=== PATIENT | female | born 2000 | race Caucasian/White ===

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

== ENCOUNTER 2019-06-03 08:34 | Emergency (ER) | payer OTHER ==
[~2019-06-03] VITALS: Ht 167.6 cm; Wt 99.8 kg
[~2019-06-03 08:34] MED LIST changes: +Silvadene20 GM TOP
[2019-06-03] MEDS ORDERED: MONDOXYNE NL100 MG PO (09:12)
[2019-06-03] MEDS ORDERED: MUCINEX D ER 61 EACH PO ×3 (09:12→10:15)
== END 2019-06-03 09:18 | disposition home or self-care (01) ==
LOC: ER 08:34
DX: J32.9 Chronic sinusitis, unspecified (principal); F17.200 Nicotine dependence, unspecified, uncomplicated; Z88.0 Allergy status to penicillin
CPT/HCPCS: 99283

== ENCOUNTER 2019-06-13 10:02 | Emergency (ER) | payer OTHER ==
[~2019-06-13] VITALS: Ht 167.6 cm; Wt 99.8 kg
[~2019-06-13 10:02] MED LIST changes: +MONDOXYNE NL100 MG PO; +MUCINEX D ER 61 EACH PO
[2019-06-13] MEDS ORDERED: CYCL10 PO (11:21)
[2019-06-13] MEDS ORDERED: IBUP800 PO (11:21)
== END 2019-06-13 11:51 | disposition home or self-care (01) ==
LOC: ER 10:02
DX: S39.012A Strain of muscle, fascia and tendon of lower back, initial encounter (principal); W19.XXXA Unspecified fall, initial encounter; Z88.0 Allergy status to penicillin; Z79.899 Other long term (current) drug therapy; F17.200 Nicotine dependence, unspecified, uncomplicated
CPT/HCPCS: 72100; 99283-25

== ENCOUNTER 2021-01-25 07:24 | Emergency (ER) | payer OTHER ==
[~2021-01-25] VITALS: Ht 167.6 cm; Wt 95.2 kg
[~2021-01-25 07:24] MED LIST changes: +CYCL10 PO; +IBUP800 PO
== END 2021-01-25 08:39 | disposition home or self-care (01) ==
LOC: ER 07:24
DX: M54.6 Pain in thoracic spine (principal); F17.290 Nicotine dependence, other tobacco product, uncomplicated
CPT/HCPCS: 96372; 99283-25; A9270; J1885

== ENCOUNTER 2021-04-03 06:59 | Emergency (ER) | payer OTHER ==
[~2021-04-03] VITALS: Ht 170.2 cm; Wt 77.1 kg
[2021-04-03] MEDS ORDERED: ONDA4ODT MM (09:56)
[2021-04-03 10:50] LABS: SARS-Cov-2 (COVID-19) PCR, MMC NEGATIVE (NEGATIVE)
== END 2021-04-03 11:40 | disposition home or self-care (01) ==
LOC: ER 06:59
PROVIDERS: Physician Assistant
DX: J39.9 Disease of upper respiratory tract, unspecified (principal); Z20.822 Contact with and (suspected) exposure to COVID-19; F17.290 Nicotine dependence, other tobacco product, uncomplicated; Z88.0 Allergy status to penicillin
CPT/HCPCS: 99284; U0004

== ENCOUNTER 2022-02-26 21:08 | Emergency (ER) | payer OTHER ==
[~2022-02-26] VITALS: Ht 167.6 cm; Wt 97.5 kg
[~2022-02-26 21:08] MED LIST changes: +ONDA4ODT MM
[2022-02-26] MEDS ORDERED: CEPH500 PO (22:06)
== END 2022-02-26 22:38 | disposition home or self-care (01) ==
LOC: ER 21:08
DX: J02.0 Streptococcal pharyngitis (principal); H92.01 Otalgia, right ear; Z88.0 Allergy status to penicillin; Z79.899 Other long term (current) drug therapy
CPT/HCPCS: 99282